=== PATIENT | female | born 1955 | race Two or more races ===

== ENCOUNTER 2025-03-19 02:46 | Inpatient (IN) | payer OTHER ==
[~2025-03-19] VITALS: Ht 152.4 cm; Wt 63.5 kg
[~2025-03-19 02:46] MED LIST: AVANDAMET 2 MG/1 TA1; CRESTOR10 MG; DIOVAN160 M1
[2025-03-19 03:05] LABS: ABG PH 7.334 (7.35-7.45); BICARBONATE 16.3 mmol/l (23-25)
[2025-03-19] MEDS ORDERED: CEFTRIAXONE SODIUM 1,000 MG VIAL IV STA (03:13)
[2025-03-19] MEDS ORDERED: AZITHROMYCIN 500 MG VIAL IV STA (03:14)
[2025-03-19] MEDS ORDERED: METHYLPREDNISOLONE SOD SUCC 125 MG VIAL IV STA (03:15)
[2025-03-19] MEDS ORDERED: LEVALBUTEROL HCL 0.63 MG/3 ML SOLUTION IH SCH ×3 (03:15→10:57)
--- NOTE | 2025-03-19 03:15 | NUR ---
PTE ALERTA Y ORIENTADA X3 EN [facility] REFIEREN TRAER A PTE POR SOB
--- NOTE | 2025-03-19 03:41 | NUR ---
SE ORIENTA A PACIENTE SOBRE ORDEN MEDICA LA MISMA REFIERE ENTENDER Y ACEPTAR.
[2025-03-19 04:18] LABS: BASO % 0.4 % (0.1-1.2); EOS # 0.17 (0.04-0.54); EOS % 0.9 % (0.7-7.0); LYMPH # 2.58 (1.18-3.74); LYMPH % 13.7 % (19.3-53.1); MEAN PLATELET VOLUME 11.00 fl (9.4-12.4); MONO # 0.80 (0.24-0.82); MONO % 4.2 % (4.7-12.5); NEUT # 15.06 (1.56-6.13); NEUT % 79.7 % (34.0-71.1); RED CELL DISTRIBUTION WIDTH 13.2 % (11.6-14.4)
[2025-03-19 04:41] LABS: ALT/SGPT 105.0 U/L (12-78); AST/SGOT 119.0 U/L (15-37); BILIRUBIN TOTAL 0.4 mg/dL (0.3-1.2); BUN CREA RATIO 19.0 (7.0-25.0); CREATININE SERUM 1.62 mg/dL (0.55-1.02); GLOBULINA 4.3 G/DL (2.4-3.5); OSMOLALITY SERUM 302.0 MOSM/KG (275-295)
[2025-03-19 04:42] LABS: GFR 31.41; GLUCOSE FASTING 353.0 mg/dL (65-100)
[2025-03-19 04:42] LABS: COVID-19 AG NEGATIVE (NEGATIVE)
[2025-03-19] MEDS ORDERED: INSULIN REGULAR, HUMAN 1,000 UNIT/10 ML UNITS IV STA (04:49)
[2025-03-19] MEDS ORDERED: ASPIRIN 325 MG TABLET.EC PO STA (05:17)
[2025-03-19] MEDS ORDERED: NITROGLYCERIN 250 ML IV SCH (05:30)
[2025-03-19] MEDS ORDERED: NITROGLYCERIN IN 5 % DEXTROSE 250 ML IV SCH ×2 (06:15)
[2025-03-19 06:16] LABS: ABG PO2 54.2 mmHg (80-100); o2 21 %
--- NOTE | 2025-03-19 07:42 | NUR ---
SE RECIBE PTE ALERTA Y OIRENTADA X3 EN CAMA BAJA CON BARANDAS EKEVADAS Y CABEZAL A 45 KOBE. PTE CON VENTURY MASK AL 50%. CONECTADA A MONITOR CRADIACO Y SATUROMETRO. CANALIZADA X2 EN BRAZO LAY CON ANGIO #20 Y #20 PATENTE VINCENT DE EDEMA Y ENROJECIMIENTO. RECIBIENDO TRDIL 50MG/250ML BAJANDO A 3MLS/HR. PENDIENTE PTE TOME U/A, PTE CON EL EVASE. PENDIENTE CONSULTA CON DR. EMELIA JAIMES.
--- NOTE | 2025-03-19 15:13 | NUR ---
SE RECIBE PTE ALERTA Y ORIENTADA X3 EN AREA DE CRITICO CAMA #1 CON BARANDAS ELEVADAS. PTE CON VENTURY MASK AL 50 % CONECTADA A MONITOR CARDIACO Y OXIMETRIA CANALIZADA X2 EN BRAZO LT CON #20 PATENTE VINCENT DE EDEMA NI ERITEMA. CON TRIDIL 50 MG/250ML. SE ORIENTA PTE A ROBY DE MUESTRA DE ORINA Y CONSULTA CON DR. EMELIA JAIMES.
[2025-03-19 16:37] LABS: URINE APPEARANCE Clear; URINE BILIRRUBIN Negative (NEGATIVE); URINE BLOOD Negative; URINE COLOR Yellow; URINE KETONE Negative (NEGATIVE); URINE LEUKOCYTE Negative; URINE NITRATE Negative; URINE UROBILINOGEN 0.2 E.U./dl
[2025-03-19 16:44] LABS: URINE BACTERIA 505.2 uL (0.0-1933); URINE EPITHELIAL CELLS 41.0 uL (0.0-38.8); URINE RBC 13.4 uL (0.0-20.8); URINE WBC 28.4 uL (0.0-23.2)
[2025-03-19 17:15] LABS: TYPE CELLS RENAL TUBULAR; URINE CAST 0.14 uL (0.0-1.40); URINE GLUCOSE >=1000 MG/DL (NEGATIVE); URINE PROTEIN 100 (NEGATIVE)
[2025-03-19 17:56] VITALS: BP 192/94
[2025-03-19] MEDS ORDERED: IPRATROPIUM BROMIDE 0.5 MG/2.5 ML AMPUL.NEB IH SCH (18:00)
[2025-03-19] MEDS ORDERED: CEFTRIAXONE SODIUM 2,000 MG in 0.9 % SODIUM CHLORIDE 100 ML IV SCH (18:06)
[2025-03-19] MEDS ORDERED: ATORVASTATIN CALCIUM 40 MG TABLET PO SCH (18:07)
[2025-03-19] MEDS ORDERED: AZITHROMYCIN 500 MG in DEXTROSE 5 % IN WATER 250 ML IV SCH (18:07)
[2025-03-19] MEDS ORDERED: ENOXAPARIN SODIUM 60 MG/0.6 ML SYRINGE SUBCUTANEO SCH (18:08)
[2025-03-19] MEDS ORDERED: INSULIN LISPRO 1,000 UNIT/10 ML UNITS SUBCUTANEO PRN (18:15)
[2025-03-19] MEDS ORDERED: ACETAMINOPHEN 500 MG GEL..CAP PO PRN (18:15)
[2025-03-19] MEDS ORDERED: METHYLPREDNISOLONE SOD SUCC 125 MG VIAL IV ONE (18:15)
[2025-03-19] MEDS ORDERED: ONDANSETRON HCL 4 MG in 0.9 % SODIUM CHLORIDE 50 ML IV PRN (18:15)
[2025-03-19] MEDS ORDERED: DEXTROSE 50 % IN WATER 0.5 G/ML DISP.SYRIN IV PRN (18:15)
[2025-03-19 18:58] LABS: INR 1.03
[2025-03-19 20:00] VITALS: BP 193/113; O2SAT 99
[2025-03-19] MEDS ORDERED: LEVALBUTEROL HCL 1.25 MG/3 ML SOLUTION IH SCH (20:00)
[2025-03-19 21:00] VITALS: BP 183/108; O2SAT 99
[2025-03-19 22:00] VITALS: BP 179/96; O2SAT 97
[2025-03-19] MEDS ORDERED: CLEVIDIPINE BUTYRATE 100 ML IV SCH (22:15)
[2025-03-19 23:25] VITALS: BP 151/63; O2SAT 99
[2025-03-20] VITALS (19 sets, daily range): BP systolic 125–1188; BP diastolic 57–96; O2SAT 96–100
[2025-03-20] MEDS ORDERED: METOPROLOL TARTRATE 25 MG TABLET PO SCH (01:00)
[2025-03-20 04:08] LABS: CHOL HDL RATIO 4.8 (0-5.0); HDL 50.0 mg/dl (40-60); LDL 159.0 mg/dl (0-130); VLDL 30.0 (0-39)
[2025-03-20 04:44] LABS: TSH 0.333 uIU/mL (0.358-3.74)
[2025-03-20] MEDS ORDERED: AZITHROMYCIN 500 MG in DEXTROSE 5 % IN WATER 250 ML IV SCH (09:00)
[2025-03-20] MEDS ORDERED: AZITHROMYCIN 500 MG VIAL IV NR (10:15)
[2025-03-20] MEDS ORDERED: FAMOTIDINE/PF 20 MG/2 ML VIAL IV SCH (11:15)
[2025-03-20] MEDS ORDERED: CLEVIDIPINE BUTYRATE 50 ML IV SCH (12:00)
[2025-03-20] MEDS ORDERED: DOXYCYCLINE HYCLATE 100MG IV SCH (12:00)
[2025-03-20] MEDS ORDERED: FAMOTIDINE/PF 20 MG/2 ML VIAL IV NR (12:50)
[2025-03-20] MEDS ORDERED: NIFEDIPINE 30 MG TAB.SA.OSM PO SCH (17:00)
[2025-03-20] MEDS ORDERED: LACTOBACILLUS ACIDOPHILUS 1 CAP CAP PO SCH (17:00)
[2025-03-20] MEDS ORDERED: NITROGLYCERIN IN 5 % DEXTROSE 250 ML IV SCH (19:00)
[2025-03-21] VITALS (20 sets, daily range): BP systolic 115–176; BP diastolic 47–92; O2SAT 96–100
[2025-03-21] MEDS ORDERED: DOXYCYCLINE HYCLATE 100MG IV ONE (00:22)
[2025-03-21] MEDS ORDERED: AZITHROMYCIN 500 MG VIAL IV SCH (09:00)
[2025-03-21] MEDS ORDERED: DOXYCYCLINE HYCLATE 100MG EACH PO SCH (12:00)
[2025-03-22] VITALS (24 sets, daily range): BP systolic 132–177; BP diastolic 55–97; O2SAT 95–100
[2025-03-22] MEDS ORDERED: METOPROLOL TARTRATE 25 MG TABLET PO SCH (01:00)
[2025-03-22 06:20] LABS: BASO % 0.4 % (0.1-1.2); EOS # 0.37 (0.04-0.54); EOS % 3.6 % (0.7-7.0); LYMPH # 2.65 (1.18-3.74); LYMPH % 26.1 % (19.3-53.1); MEAN PLATELET VOLUME 10.90 fl (9.4-12.4); MONO # 0.54 (0.24-0.82); MONO % 5.3 % (4.7-12.5); NEUT # 6.51 (1.56-6.13); NEUT % 64.2 % (34.0-71.1); RED CELL DISTRIBUTION WIDTH 13.2 % (11.6-14.4)
[2025-03-22 07:19] LABS: ALT/SGPT 41.0 U/L (12-78); AST/SGOT 17.0 U/L (15-37); BILIRUBIN TOTAL 0.36 mg/dL (0.3-1.2); BUN CREA RATIO 23.0 (7.0-25.0); CREATININE SERUM 1.35 mg/dL (0.55-1.02); GFR 38.77; GLOBULINA 3.3 G/DL (2.4-3.5); GLUCOSE FASTING 133.0 mg/dL (65-100); OSMOLALITY SERUM 286.0 MOSM/KG (275-295)
[2025-03-22] MEDS ORDERED: INSULIN LISPRO 1,000 UNIT/10 ML UNITS SUBCUTANEO PRN (08:30)
[2025-03-22] MEDS ORDERED: INSULIN NPH HUM/REG INSULIN HM 1,000 UNIT/10 ML UNITS SUBCUTANEO SCH (09:00)
[2025-03-22] MEDS ORDERED: NIFEDIPINE 30 MG TAB.SA.OSM PO SCH (09:00)
[2025-03-22] MEDS ORDERED: METOPROLOL TARTRATE 50 MG TABLET PO SCH (09:00)
[2025-03-22] MEDS ORDERED: ASPIRIN 81 MG TABLET.EC PO SCH (09:00)
[2025-03-22] MEDS ORDERED: NIFEDIPINE 60 MG TAB.SA.OSM PO SCH (09:00)
[2025-03-23 07:34] VITALS: BP 136/71; O2SAT 98
[2025-03-23 08:00] VITALS: BP 146/78; O2SAT 98
[2025-03-23 17:20] VITALS: BP 149/78; O2SAT 100
[2025-03-23 20:00] VITALS: BP 113/69; O2SAT 100
[2025-03-23 23:10] VITALS: BP 110/85; O2SAT 98
[2025-03-24 04:00] VITALS: BP 178/81; O2SAT 96
[2025-03-24 07:30] VITALS: BP 192/84; O2SAT 99
[2025-03-24] MEDS ORDERED: INSULIN NPH HUM/REG INSULIN HM 1,000 UNIT/10 ML UNITS SUBCUTANEO SCH (09:00)
[2025-03-24] MEDS ORDERED: ENOXAPARIN SODIUM 60 MG/0.6 ML SYRINGE SUBCUTANEO SCH (09:00)
[2025-03-24] MEDS ORDERED: TICAGRELOR 90 MG TABLET PO NR (10:00)
[2025-03-24 12:00] VITALS: BP 177/58; O2SAT 100
[2025-03-24] MEDS ORDERED: LACTOBACILLUS ACIDOPHILUS 1 CAP CAP PO SCH (13:00)
[2025-03-24 15:17] VITALS: BP 151/62; O2SAT 100
[2025-03-24] MEDS ORDERED: INSULIN LISPRO 1,000 UNIT/10 ML UNITS SUBCUTANEO SCH (17:00)
[2025-03-24 20:00] VITALS: BP 153/63; O2SAT 100
[2025-03-24] MEDS ORDERED: TICAGRELOR 90 MG TABLET PO SCH (21:00)
[2025-03-24 23:11] VITALS: BP 149/65; O2SAT 99
[2025-03-25 04:04] VITALS: BP 145/57; O2SAT 100
[2025-03-25 07:35] VITALS: BP 149/56; O2SAT 98
[2025-03-25 12:00] VITALS: BP 156/66; O2SAT 100
[2025-03-25 15:24] VITALS: BP 141/59; O2SAT 99
[2025-03-25 20:00] VITALS: BP 139/64; O2SAT 100
[2025-03-25 23:42] VITALS: BP 161/62; O2SAT 99
[2025-03-26 04:09] VITALS: BP 171/65; O2SAT 99
[2025-03-26 06:00] VITALS: BP 63/49; O2SAT 97
[2025-03-26 08:00] VITALS: BP 162/71; O2SAT 100
[2025-03-26 12:17] VITALS: BP 170/63; O2SAT 98
[2025-03-26 19:50] VITALS: BP 165/61
[2025-03-26 23:38] VITALS: BP 155/71; O2SAT 98
[2025-03-27 04:00] VITALS: BP 133/70; O2SAT 100
[2025-03-27 07:36] VITALS: BP 138/77; O2SAT 98
[2025-03-27 12:00] VITALS: BP 158/67; O2SAT 100
[2025-03-27 15:09] VITALS: BP 100/47; O2SAT 100
[2025-03-27 20:00] VITALS: BP 171/75; O2SAT 100
[2025-03-27 23:44] VITALS: BP 160/70; O2SAT 100
[2025-03-28 04:00] VITALS: BP 134/60; O2SAT 100
[2025-03-28 06:54] LABS: BASO % 0.4 % (0.1-1.2); EOS # 0.26 (0.04-0.54); EOS % 3.5 % (0.7-7.0); LYMPH # 2.08 (1.18-3.74); LYMPH % 28.0 % (19.3-53.1); MEAN PLATELET VOLUME 10.90 fl (9.4-12.4); MONO # 0.52 (0.24-0.82); MONO % 7.0 % (4.7-12.5); NEUT # 4.51 (1.56-6.13); NEUT % 60.8 % (34.0-71.1); RED CELL DISTRIBUTION WIDTH 12.6 % (11.6-14.4)
[2025-03-28 06:56] LABS: ALT/SGPT 62.0 U/L (12-78); AST/SGOT 43.0 U/L (15-37); BILIRUBIN TOTAL 0.38 mg/dL (0.3-1.2); BUN CREA RATIO 28.0 (7.0-25.0); CREATININE SERUM 1.2 mg/dL (0.55-1.02); GFR 44.41; GLOBULINA 2.9 G/DL (2.4-3.5); GLUCOSE FASTING 125.0 mg/dL (65-100); OSMOLALITY SERUM 287.0 MOSM/KG (275-295)
[2025-03-28 07:12] VITALS: BP 179/77; O2SAT 100
[2025-03-28 08:34] VITALS: BP 164/73
[2025-03-28] MEDS ORDERED: TOPROL XL100 M1 PO (08:53)
[2025-03-28] MEDS ORDERED: LOSARTAN POTASS25 MG PO (08:53)
[2025-03-28] MEDS ORDERED: ELIQUIS5 MG PO (08:53)
[2025-03-28] MEDS ORDERED: NIFEDIPINE ER90 M1 PO (08:53)
[2025-03-28] MEDS ORDERED: LASIX20 MG PO (08:53)
[2025-03-28] MEDS ORDERED: LIPITOR40 M1 PO (08:53)
[2025-03-28] MEDS ORDERED: HYDRALAZINE HCL25 MG PO (08:53)
[2025-03-28] MEDS ORDERED: HUMULIN 70100 UNIT/2 SUBCUTANEO (08:53)
[2025-03-28] MEDS ORDERED: CLOPIDOGREL BIS75 MG PO (08:53)
[2025-03-28] MEDS ORDERED: ST. JOSEPH ASPI81 M2 PO (08:53)
[2025-03-28] MEDS ORDERED: JARDIANCE10 MG PO (08:53)
[2025-03-28] MEDS ORDERED: EMPAGLIFLOZIN 10 MG TABLET PO SCH (09:00)
[2025-03-28] MEDS ORDERED: CLOPIDOGREL BISULFATE 75 MG TABLET PO SCH (09:00)
[2025-03-28] MEDS ORDERED: LOSARTAN POTASSIUM 25 MG TABLET PO SCH (09:00)
[2025-03-28] MEDS ORDERED: METOPROLOL SUCCINATE 100 MG TAB.SR.24H PO SCH (09:00)
[2025-03-28] MEDS ORDERED: APIXABAN 5 MG TABLET PO SCH (09:00)
== END 2025-03-28 09:58 | disposition home or self-care (01) | DRG 270 ==
LOC: ER 02:46 → ICU-2 18:25 → ICU 18:25
PROVIDERS: General Practice; Internal Medicine Nephrology; ADMIT Internal Medicine; ATTEND Internal Medicine
PROC: 4A033R1 Measurement of Arterial Saturation, Peripheral, Percutaneous Approach (ICD-10-PCS; 2025-03-19)
PROC: 3E0F7GC Introduction of Other Therapeutic Substance into Respiratory Tract, Via Natural or Artificial Opening (ICD-10-PCS; 2025-03-19)
PROC: BB24ZZZ Computerized Tomography (CT Scan) of Bilateral Lungs (ICD-10-PCS; 2025-03-19)
PROC: B246ZZZ Ultrasonography of Right and Left Heart (ICD-10-PCS; 2025-03-19)
PROC: B214YZZ Fluoroscopy of Right Heart using Other Contrast (ICD-10-PCS; 2025-03-23)
PROC: 4A023N7 Measurement of Cardiac Sampling and Pressure, Left Heart, Percutaneous Approach (ICD-10-PCS; 2025-03-23)
PROC: 02703ZZ Dilation of Coronary Artery, One Artery, Percutaneous Approach (ICD-10-PCS; 2025-03-26)
PROC: 6A750ZZ Ultrasound Therapy, Circulatory, Single (ICD-10-PCS; 2025-03-26)
PROC: X2U4079 Supplement Coronary Artery/Arteries with Vein Graft Extraluminal Support Device(s), Open Approach, New Technology Group 9 (ICD-10-PCS; principal; 2025-03-27)
DX: I21.4 Non-ST elevation (NSTEMI) myocardial infarction (principal); J18.9 Pneumonia, unspecified organism; R65.10 Systemic inflammatory response syndrome (SIRS) of non-infectious origin without acute organ dysfunction; N17.9 Acute kidney failure, unspecified; I50.9 Heart failure, unspecified; R09.02 Hypoxemia; E11.9 Type 2 diabetes mellitus without complications; E78.5 Hyperlipidemia, unspecified
CPT/HCPCS: 36600; 94640; 82805; 93306; 93458; 99152 ×2; 92928; 92978; A7025